=== PATIENT | male | born 1945 | race Caucasian/White ===

== ENCOUNTER 2016-06-24 10:33 | Emergency (ER) | payer MEDICARE, OTHER ==
[~2016-06-24] VITALS: Ht 190.5 cm; Wt 115.9 kg
[~2016-06-24 10:33] MED LIST: ATOR20TA65 PO; CLOP75TA28 PO; GLBR5T PO; INSU100I13 SUBQ; LISI-567 PO; METF500T4 PO; METO-272 PO; SUMA50TA2 PO; VENL150T3 PO; ZOLP10TA5 PO; ZONI100C6 PO
[2016-06-24 10:42] VITALS: BP 187/96; PULSE 67; RESP 12; O2SAT 97
--- NOTE | 2016-06-24 10:52 | ED.REPORT ---
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 He reportedly was trying to move something that he cannot remember, fell onto his left face on concrete, was witnessed by his , had loss of consciousness for less than 1 minute, patient was able to bring himself off the ground, and ambulate independently afterwards. He did not contact his primary care doctor until 2 days ago, at which point he was instructed to go to the emergency room, however declined to do so until today when they knowledge that his somnolence, dizziness, confusion was worsening. He denies any unilateral weakness, changes in vision, headache, paresthesias, numbness, neck pain, vomiting, diarrhea, incontinence, no chest pain, no shortness of breath. He says his dizziness is worse when he is laying supine, and resolves with sitting up. He uses a walker at home intermittently and has been having to use it more in the last couple of days. Nursing Notes Stated Complaint: DIZZY/NAUSEOUS SINCE [facility] 06/18/16 Chief Complaint: Multiple Trauma/Fall Nursing Notes Reviewed: Yes Allergies: Coded Allergies: Penicillins (Verified Allergy, Mild, Rash,Itching,, 12/13/14) Scheduled Atorvastatin Calcium (Atorvastatin Calcium) 20 Mg Tablet 40 MG PO HS Clopidogrel (Clopidogrel) 75 Mg Tablet 75 MG PO DAILY Be sure to take daily Glyburide (Glyburide) 5 Mg Tab 10 MG PO BIDAC Insulin Glargine (Lantus U100 Solostar Insulin Pen) 100 Unit/1 Ml Insuln.pen 36 UNIT SUBQ HS Lisinopril (Lisinopril) 20 Mg Tablet 20 MG PO HS Metformin (Metformin) 500 Mg Tablet 500 MG PO BID Metoprolol Succinate ER (Metoprolol Succinate ER) 50 Mg Tab.er.24h 50 MG PO HS Venlafaxine ER (Venlafaxine ER) 150 Mg Tab.er.24 150 MG PO DAILY Zonisamide (Zonisamide) 100 Mg Capsule 100 MG PO HS Scheduled PRN Sumatriptan Succinate (Sumatriptan Succinate) 50 Mg Tablet 50 MG PO HS PRN PRN migraines Zolpidem (Zolpidem) 10 Mg Tablet 10 MG PO HS PRN PRN For Insomnia General Time Seen by MD: 10:48 Chief Complaint Fall, Face injury Hx Obtained From: Patient, Spouse Arrived By: Walk-in Location: Head Severity: Current: Pain level 2 out of 10 Similar Sx Previous: Yes Risk Factors IC Bleed Risk Stratification Blood thinners Nexus C-Spine Criteria No post midline tendernes, Not intoxicated, Normal level or alertness, No focal neuro deficits, No distracting injuries Head CT Imaging Inclusion Criteria: >/= 16 yo age GCS of 14 OR 15 Non Pentrating InjuryNo Presentation w/in 24 hrs. Bleeding Risk Stratification Anticoagulants Risk factors reviewed Past Medical History Past Medical History Abdominal aortic aneurysm, 5.1 cm by an MRA on March 04, 2010 1. Coronary artery disease status post PCI to the RCA in 2009. At that time, luminal irregularities were noted in the LAD. Stent Placed 2010 2. Preserved biventricular function. 3. Diabetes mellitus. 4. Systemic hypertension, poorly controlled. 5. Diabetic retinopathy. 6. Depression. 7. Dyslipidemia. 8. Anxiety Reports: Coronary artery disease, Diabetes mellitus, Hyperlipidemia, Hypertension Reports: Depression Past Surgical History Right coronary artery stent in 2009 Diverticulosis and polyp removal by colonoscopy on July 05, 2012. Neck surgery. Back surgery. Hernia repairs. Family History Noncontributory Smoking History Former Smoker Social History Alcohol Use: Denies alcohol use Drug Use: Denies drug use Other Social History: Good social support, Ambulatory Status Independent Review of Systems Complete sys rev & neg: except as marked. Physical Exam General: Laying in bed, no apparent distress. Unshaven HEENT: Normocephalic, ecchymosis to right inferior orbit, abrasion to left hindu hemostatic, external auditory canal without wet or dry blood, no tenderness around either orbit, there is no consensual pain, no tenderness over zygus, jaw strength is equal bilaterally, no loose teeth. Sclera are white, conjunctiva pink. Mild tenderness over C4 midline spine. Cardiovascular: Regular rate and rhythm, no clicks murmurs rubs, peripheral pulses 2/4 equal bilaterally Pulmonary: Clear to auscultation bilaterally, no W/R/R. Abdominal: Round Soft to palpation, bowel sounds present 4, no hepatosplenomegaly. Negative rebound. Extremities: No edema appreciated. No tenderness, asymmetry. Neuro: Neurologically grossly intact, strength is equal bilaterally upper and lower extremities, decreased strength to lower extremities. 0/4 patellar and Achilles reflexes bilaterally. Unable to tolerate lateral gaze bilaterally due to dizziness. MSK: Gait is unsteady, able to move extremities on their own volition, strength 5 out of 5 equal bilaterally to upper and lower extremities. Initial Vital Signs Vital Signs (First) Date Time Temp Pulse Resp B/P Pulse Ox O2 Delivery O2 Flow Rate FiO2 06/24/16 10:42 36.8 67 12 187/96 97 Room Air Initial VS: Reviewed Interpretation & Diagnostics Lab Results Interpretation Result Diagram: 06/24/16 1121 06/24/16 1121 Test 06/24/16 11:21 White Blood Count 7.8th/mm3 (3.8-10.1) Red Blood Count 4.67mil/mm3 (4.40-5.80) Hemoglobin 14.6g/dL (13.8-17.2) Hematocrit 42.4% (41.0-50.0) Mean Corpuscular Volume 90.8fL (81-100) Mean Corpuscular Hemoglobin 31.3pg (27.0-35.0) Mean Corpuscular Hemoglobin Concent 34.4% (32.0-37.0) Red Cell Distribution Width 13.6% (12.3-15.4) Platelet Count 256bil/L (150-400) Neutrophils (%) (Auto) 71.0% (40-74) Lymphocytes (%) (Auto) 18.8% (14-46) Monocytes (%) (Auto) 7.4% (4-12) Eosinophils (%) (Auto) 2.2% (0-5) Basophils (%) (Auto) 0.5% (0-3) Prothrombin Time 10.0sec (8.1-12.5) Prothromb Time International Ratio 0.94ratio Activated Partial Thromboplast Time 21.1sec (22.8-33.0) Sodium Level 142mEq/L (134-144) Potassium Level 5.1mEq/L (3.5-5.2) Chloride Level 103mEq/L (97-108) Carbon Dioxide Level 24mmol/L (18-29) Blood Urea Nitrogen 22mg/dL (8-27) Creatinine 0.90mg/dL (0.76-1.27) Estimat Glomerular Filtration Rate 89mL/min (>59) Glucose Level 199mg/dL (60-99) Calcium Level 9.7mg/dL (8.5-10.1) Total Bilirubin 0.4mg/dL (0.0-1.2) Aspartate Amino Transf (AST/SGOT) 28U/L (0-50) Alanine Aminotransferase (ALT/SGPT) 19U/L (0-44) Alkaline Phosphatase 108U/L (25-160) Total Protein 7.1g/dL (6.4-8.4) Albumin 4.1g/dL (3.4-5.0) Lab Results Interpretation: Hyperglycemia Low APTT CT Head Interpretation IMPRESSION: 1. No acute intracranial abnormality. 2. Mild volume loss. 3. Sinus disease. Dictated by: Shelly Robertson M.D. on 06/24/2016 at 11:13 Images personally reviewed Study: Head CT no contrast Interpretation / Wet Read by: Interpret - Radiologist Re-Eval/Medical Decision Med Decision/Clinical Course Imaging did not reveal any signs of old or new bleeds. Laboratory work was unremarkable except for elevated blood glucose. Cause of his symptoms, nausea, somnolence, dizziness at this time are being attributed to post concussive syndrome, in context of previous TBI. Results, interpretation, and diagnosis were explained to the patient. Red flag symptoms were discussed with instructions return to the ER. Patient was advised to follow-up with primary care doctor regarding his elevated blood sugar, as well as for evolution of his current symptoms. Counseled Regarding: Diagnosis, Lab results, When/why to return to ED Discharge & Departure Impression: Primary Impression: Post concussion syndrome Additional Impression: Hyperglycemia Disposition: Home Discharge Condition All VS Reviewed: Yes Condition: Stable Patient Instructions: Concussion (ED) Additional Instructions: CAT scan of your head did not show any new or old bleeds. Imaging of the neck did not show any signs of fracture. The symptoms you are experiencing are most likely due to a concussion. Concussions are essentially bruises of the brain tissue, which over time the effects compounding each other. The symptoms of nausea, increased tiredness, headache, some dizziness, memory difficulties, Return to the Emergency Department if symptoms substantially worsen. If you begin vomiting, begin to shake, developed fever, chills, shortness of breath, sensation of the room spinning uncontrollably, chest pain, or feel as though you are going to faint or pass out. If you begin to have weakness on one side of your face or body, please call 911 immediately. Additionally your blood sugar was nearly 200 in the emergency department. Please follow-up with your primary care regarding elevated blood sugar level. If you check your blood sugar at home, and remains elevated, please asked to speak with your doctor sooner rather than later. Recommend he follow-up within 1 week. Referrals: John Carl MD (PCP) EDSupervising Provider for APC: Rashel Taylor MD Scribe Attestation Portions of this note were transcribed by Molly Turner and Johnny Velez. I, Dr. Taylor personally performed the history, physical exam and medical decision-making;I reviewed and confirmed the accuracy of the information in the transcribed note. Signed by Molly Turner and Johnny Velez, [employer]. 06/24/16 TIME Attending Statement Discussed patient with resident Ashutosh. Evaluated patient independently and agree with assessment and plan as above. In brief, 71-year-old male on Plavix presenting one week status post ground-level fall onto head. Over the past week with confusion, sleepiness, dizziness, nausea. He is not on any blood thinners. CT brain no acute pathology. He has normal neurological exam. His GCS is 15. He has no facial pain or signs of unstable facial fractures. No signs basilar skull fx. likely with concussion. Gave concussion handout. Discharged home with plan to follow up with primary doctor. Return if any new or worsening confusion, dizziness, neurological deficits, headache any other new or worsening symptoms. copies to: John Carl MD, Ben M MD Jun 24, 2016 10:52 Molly Turner Jun 24, 2016 11:05 Esau Boykin DO Jun 24, 2016 11:35
--- NOTE | 2016-06-24 11:16 | DRSVH ---
PROCEDURE: CT BRAIN WITHOUT CONTRAST ([id number]) INDICATIONS: HEAD INJURY ON ANTICOAG TECHNIQUE: Noncontrast 4.5 mm thick angled axial sections acquired from the foramen magnum to the vertex, with c oronal reformats. COMPARISON: [facility], CT, CT BRAIN WO CON, 11/27/2015, 16:01. [facility], CT, CT BRAIN WO CON, 06/11/2015, 11:12. [facility], CT, BRAIN W/O CONTRAST, 07/29/2014, 18 :28. FINDINGS: Image quality: Excellent. CSF spaces: Basal cisterns are patent. No extra-axial fluid collections. The ventricles are symmet javi in size and shape. Brain: No intracranial bleeds or masses. There is cerebral volume loss for age, with resultant vent ricular and sulcal prominence. There are periventricular and deep white matter chronic small vessel ischemic changes. There is intracranial internal carotid artery atherosclerosis. Skull and face: Calvarium and visualized facial bones appear intact, without suspicious lesions. Sinuses: Mild left maxillary sinus mucosal thickening. Left greater than right maxillary sinus retent ion cysts. Mastoids clear. IMPRESSION: 1. No acute intracranial abnormality. 2. Mild volume loss. 3. Sinus disease. Dictated by: Shelly Robertson M.D. on 06/24/2016 at 11:13 Approved by: Shelly Robertson M.D. on 06/24/2016 at 11:14
[2016-06-24 11:28] LABS: BASOPHILS % (AUTO) 0.5 % (0-3); EOSINOPHILS % (AUTO) 2.2 % (0-5); MONOCYTES % (AUTO) 7.4 % (4-12); Mean Corpuscular Hemoglobin 31.3 pg (27.0-35.0); Mean Corpuscular Volume 90.8 fL (81-100); Platelet Count 256 bil/L (150-400)
[2016-06-24 12:37] LABS: INR 0.94 ratio
--- NOTE | 2016-06-24 12:50 | DRSVH ---
PROCEDURE: CT CERVICAL SPINE WITHOUT CONTRAST ([id number]) INDICATIONS: trauma neck pain over c4 TECHNIQUE: Noncontrast 3 mm thick sections acquired from the skull base to the T4 level. Sagittal and coronal r eformats were then constructed. For radiation dose reduction, the following was used: automated exp osure control, adjustment of mA and/or kV according to patient size. COMPARISON: [facility] [place], MR, MR CERVICAL SPINE WO CON, 06/19/2015, 8:55. [facility] [place], CR, SPINE CERVICAL 2 OR 3VW, 02/24/2016, 16:16. FINDINGS: Image quality: There is mild metallic streak artifact associated patient's surgical hardware. Bones: No definite acute fractures. There are post surgical changes redemonstrated status post ACDF from C5-C7. There is also anterior fixation along the disc spaces at C4-C5 and C7-T1. The surgical hardware appears intact. There is anterolisthesis of C4 and C5 measuring approximately 4 mm which ap pears unchanged from the prior x-ray of 02/24/16. There is also minimal anterolisthesis at C3-C4 and C7-T1 which appear unchanged. There are posterior disc osteophyte complexes throughout the cervical spine with associated narrowing at C4-C5 which is likely moderate in degree. There is also severe de generation of the atlantoaxial joint as well as multilevel facet arthropathy most prominent in the mi d cervical spine. Visualized superior ribs are intact. Soft tissues: Prevertebral soft tissues are normal in thickness. No paravertebral hematomas. No ap ical pneumothoraces. IMPRESSION: 1. No definite acute fracture. 2. Extensive post surgical changes redemonstrated in the cervical spine without change in alignment or evidence of hardware fracture compared to the prior study. 3. Multilevel degenerative changes with probable associated moderate spinal canal narrowing at C4-C5 which is incompletely evaluated on CT. Dictated by: Tone Junior M.D. on 06/24/2016 at 12:39 Approved by: Tone Junior M.D. on 06/24/2016 at 12:48
[2016-06-24 13:37] VITALS: BP 133/71; PULSE 78; RESP 16
== END 2016-06-24 13:39 | disposition home or self-care (01) ==
LOC: SED 10:33
DX: F07.81 Postconcussional syndrome (principal); W18.39XA Other fall on same level, initial encounter; Y93.89 Activity, other specified; Y92.89 Other specified places as the place of occurrence of the external cause; Y99.8 Other external cause status; E11.65 Type 2 diabetes mellitus with hyperglycemia; I11.0 Hypertensive heart disease with heart failure; E11.319 Type 2 diabetes mellitus with unspecified diabetic retinopathy without macular edema; I25.10 Atherosclerotic heart disease of native coronary artery without angina pectoris; E78.5 Hyperlipidemia, unspecified; Z79.4 Long term (current) use of insulin; Z79.84 Long term (current) use of oral hypoglycemic drugs; Z95.5 Presence of coronary angioplasty implant and graft; Z87.891 Personal history of nicotine dependence; Z88.0 Allergy status to penicillin